=== PATIENT | male | born 1950 | race Caucasian/White ===

== ENCOUNTER 2021-09-16 06:34 | Outpatient (CLI) | payer MEDICARE, BC, SELFPAY ==
--- NOTE | ~2021-09-16 | XR_ITS ---
XR lumbar spine min 4V DATE: 09/16/2021 07:18 INDICATION: Lumbar stenosis. Neurogenic claudication. TECHNIQUE: AP, lateral, coned lateral lumbosacral views. Flexion and extension lateral views. COMPARISON: None FINDINGS: Moderately prominent rotatory levoscoliosis of the lumbar spine. Degenerative changes apophyseal joints, with associated grade 1 anterolisthesis at L4-5. There is severe degenerative disc disease and mild retrolisthesis at L1-2, L2-3 and L3-4. There is moderate degenerative disc disease at L4-5 and moderately severe degenerative disc disease a t L5-S1. No fracture or bone destruction is evident. The lumbar pedicles are intact. The sacral iliac joints appear normal. Prominent right hip osteoarthritis. Status post left total hip arthroplasty. IMPRESSION: Moderate rotatory levoscoliosis Extensive degenerative disc disease Degenerative change at the apophyseal joints with associated grade 1 anterolisthesis at L4-5 Status post left total hip arthroplasty Prominent right hip osteoarthritis Reviewed, dictated and finalized at location B. IMPRESSION: Moderate rotatory levoscoliosis Extensive degenerative disc disease Degenerative change at the apophyseal joints with associated grade 1 anterolist hesis at L4-5 Status post left total hip arthroplasty Prominent right hip osteoarthritis
--- NOTE | ~2021-09-16 | CT_ITS ---
EXAMINATION: CT lumbar spine wo con DATE: 09/16/2021 07:07 INDICATION: Lumbar stenosis with neurogenic claudication. TECHNIQUE: Computed tomography (CT) of the lumbar spine was performed without intravenous contrast. A utomated exposure control and iterative reconstruction technique were employed. The dose-length produ ct was 963.90 mGy-cm. COMPARISON: Lumbar spine radiographs 09/16/2021 FINDINGS: There is 22 degrees levoscoliosis of thoracolumbar spine. There is 3 mm retrolisthesis of L 1 on L2 and L2 and L3. There is mild chronic anterior wedging of T12 and L1 vertebral bodies. There i s mildly decreased disc height at T11-T12 and T12-L1 and severely decreased disc height from L1-L2 th rough L5-S1 with endplate remodeling. The following disc levels are specifically discussed: L1-L2: The disc is bulging. There is moderate bilateral facet joint osteoarthritis. There is moderate bilateral neural foraminal stenosis. There is mild central canal stenosis. L2-L3: The disc is bulging. There is severe bilateral facet joint osteoarthritis. There is moderate b ilateral neural foraminal stenosis. There is mild central canal stenosis. L3-L4: The disc is bulging. There is severe bilateral facet joint osteoarthritis. There is moderate b ilateral neural foraminal stenosis. There is mild central canal stenosis. L4-L5: The disc is bulging. There is severe bilateral facet joint osteoarthritis. There is moderate b ilateral neural foraminal stenosis. There is moderate central canal stenosis. L5-S1: The disc is bulging with superimposed left central extrusion. There is severe bilateral facet joint osteoarthritis. There is mild right and moderate left neural foraminal stenosis. There is mild central canal stenosis. There is moderate stenosis of left lateral recess. IMPRESSION: 1. Severe lumbar spondylosis. 2. Thoracolumbar levoscoliosis. Reviewed, dictated and finalized at location A.
== END 2021-09-16 06:35 | disposition home or self-care (01) ==
PROVIDERS: Visit Provider Neurological Surgery
DX: M47.817 Spondylosis without myelopathy or radiculopathy, lumbosacral region (principal); M48.07 Spinal stenosis, lumbosacral region; M41.9 Scoliosis, unspecified; M16.11 Unilateral primary osteoarthritis, right hip
CPT/HCPCS: 72110; 72131